=== PATIENT | male | born 2000 | race Asian ===

== ENCOUNTER 2021-08-11 21:00 | Emergency (ER) | payer OTHER ==
[2021-08-11 21:04] VITALS: BP 118/73; PULSE 95; TEMP 98.2; BMI 23.9
== END 2021-08-11 23:32 | disposition home or self-care (01) ==
LOC: JER 21:00
DX: R55 Syncope and collapse (principal)
CPT/HCPCS: 70450-TC; 72125-TC; 82962; 93005; 93010; 99285-25

== ENCOUNTER 2024-09-09 13:00 | Emergency (ER) | payer OTHER, BC ==
[2024-09-09 13:08] VITALS: BMI 18.1
[2024-09-09] MEDS ORDERED: ALBUTEROL SO4 2.5/IPRATROPIUM 0.5 INH SOL 3 ML VIAL.NEB. NEB ONE ×2 (14:34→14:54)
[2024-09-09] MEDS ORDERED: DEXAMETHASONE SOD PHOSPHATE 10 MG/1 ML VIAL ONE (14:40)
[2024-09-09] MEDS: DEXAMETHASONE LIQUID 0.5 MG/5 ML PO ONE (14:52)
[2024-09-09] MEDS: ALBUTEROL SO4 2.5/IPRATROPIUM 0.5 INH SOL 3 ML VIAL.NEB. NEB ONE (14:53)
[2024-09-09 15:42] LABS: THROAT:GRP A STREP NOT DETECTED (NOTDETECTED)
[2024-09-09 16:49] VITALS: BP 120/65; PULSE 88; RESP 18; TEMP 98.6
== END 2024-09-09 17:13 | disposition home or self-care (01) ==
LOC: JER 13:00
PROC: 3E0F7GC Introduction of Other Therapeutic Substance into Respiratory Tract, Via Natural or Artificial Opening (ICD-10-PCS; principal; 2024-09-09)
DX: J98.01 Acute bronchospasm (principal); B97.89 Other viral agents as the cause of diseases classified elsewhere; R07.89 Other chest pain; R06.02 Shortness of breath; R05.9 Cough, unspecified; Z20.822 Contact with and (suspected) exposure to COVID-19
CPT/HCPCS: 0241U-QW; 71046-TC-FY; 87651; 93005; 93010; 99285-25

== ENCOUNTER 2025-04-28 13:17 | Emergency (ER) | payer OTHER, BC ==
[2025-04-28 13:22] VITALS: BP 110/61; PULSE 94; RESP 18; TEMP 98.4; BMI 18.0
[2025-04-28] MEDS ORDERED: IBUPROFEN 600 MG TABLET (FP) PO ONE (14:16)
[2025-04-28] MEDS ORDERED: ACETAMINOPHEN 500 MG TABLET (FP) ONE (14:16)
[2025-04-28] MEDS: IBUPROFEN 600 MG TABLET (FP) PO ONE (14:20)
[2025-04-28] MEDS: ACETAMINOPHEN 500 MG TABLET (FP) PO ONE (14:20)
== END 2025-04-28 14:21 | disposition home or self-care (01) ==
LOC: JERFT 13:17
DX: M62.830 Muscle spasm of back (principal); M62.838 Other muscle spasm; V87.7XXA Person injured in collision between other specified motor vehicles (traffic), initial encounter; Y92.410 Unspecified street and highway as the place of occurrence of the external cause
CPT/HCPCS: 99283-25